=== PATIENT | female | born 1980 | race Caucasian/White ===

== ENCOUNTER 2023-09-21 10:39 | Day surgery (SDC) | payer OTHER ==
[2023-09-20 13:09] LABS: Anion Gap 8.6 mEq/L (5.0-15.0); Potassium 3.6 mEq/L (3.5-5.1)
[2023-09-21] MEDS: Ringers Lactate 1,000 ML IV ONE (11:05)
[2023-09-21] MEDS ORDERED: LIDOCAINE 1% MPF 5 ML VIAL ONE (13:32)
[2023-09-21] MEDS ORDERED: propofoL 200 MG/20 ML VIAL IV ONE ×2 (13:33→13:44)
[2023-09-21 15:47] VITALS: BP 121/76; TEMP 97.2; O2SAT 100
--- NOTE | 2023-09-21 17:48 | EKG ---
Test Date: 2023-09-20 Test Time: 12:46:45 [employer]: CHRIS MEASUREMENT RESULTS: Intervals: Rate: 71 NH: 154 QRSD: 84 QT: 354 QTc: 384 Ferdinand: P: 29 NH: 154 QRS: 59 T: 50 INTERPRETIVE STATEMENTS: Normal sinus rhythm Low voltage QRS Cannot rule out Anterior infarct, age undetermined Abnormal ECG No previous ECG available for comparison Electronically Signed On 09-21-23 17:46:33 CDT by Jae Barrera
== END 2023-09-21 14:30 | disposition home or self-care (01) ==
LOC: OR 10:39
PROVIDERS: ATTEND Surgery
PROC: 0DB78ZX Excision of Stomach, Pylorus, Via Natural or Artificial Opening Endoscopic, Diagnostic (ICD-10-PCS; 2023-09-21)
PROC: 0DB68ZX Excision of Stomach, Via Natural or Artificial Opening Endoscopic, Diagnostic (ICD-10-PCS; principal; 2023-09-21 12:30)
DX: K31.89 Other diseases of stomach and duodenum (principal); R10.13 Epigastric pain; R11.0 Nausea; K21.9 Gastro-esophageal reflux disease without esophagitis; K44.9 Diaphragmatic hernia without obstruction or gangrene; K29.60 Other gastritis without bleeding; K29.50 Unspecified chronic gastritis without bleeding; K31.7 Polyp of stomach and duodenum
CPT/HCPCS: 36415; 80048; 84703; 88302; 88304; 88305; 88312; 93005; J2001; J2704; J7120

== ENCOUNTER 2023-10-05 10:49 | Emergency (ER) | payer OTHER ==
--- OUTSIDE RECORDS SUMMARY | 2023-10-05 10:52 | XMS REPORT | Continuity of Care Document ---
Author Name Unknown Address [address] [facility] [place] [address] [facility] thconnect Address [address] [facility] [place] [address] Care Team Providers Care Outbound Supervisor Name Role Phone Cliff Busch MD Primary Care Physician + [phone] SALUD BLOUNT Attending Clinician Unavailayleen shipman Doctor Unassigned, [place] Attending Clinician U SOULEYMANE Galvan Attending Clinician Souleymane Julien Attending Clinician + ALDA ZAVALA Attending Clinician Unavailable ALDA ZAVALA Attending Clinician Unavailable Salud Blount MD Attending Clinician + [phone] KENYATTA CAMPBELL Attending Clinician Unavail able CLIFF BUSCH Attending Clinician Unavailable Cliff Busch MD Attending Clinician [phone] Dalton Peng PT Attending Clinician UnaTACO Machado Attending Clinician Unavailable Taco Jain MD Attending Clinician +[phone] KEY PEDRO Attending Clinician Unavailable Willis LUCASP-CKey Attending Clinician +[phone] Lab, Dago Cbc Attending Clinician Unavailable Care, Dago Urgent Attending Clinician Unavailable Niki White RN Attending Clinician Unavaila umberto Nurse, Dago Urgent Attending Clinician Unavailsylvia e Unknown, Attending Attending Clinician UnavailJann Marroquin MD Attending Clinician +[phone] UNKNOWN, ATTENDING Attending Clinician Unavailab Janet Dunn MD Attending Clinician ALDA ZAVALA Admitting Clinician Unavailable CLIFF BUSCH Admitting Clinician Unavailable Payers Payer Name Policy Type Policy Number Effective Date Expirati on Date Source [employer] OPEN ACCESS/OPEN ACCESS PLUS [id number] 2021 00:00:00 [employer] PREFERRED GENERIC [id number] 2023 00:00:00 TSHBP 90 [place] [id number] 2022 00:00:00 2022 00:00:00 LELAND II [id number] 2021 00:00:00 [facility] [id number] 2020 00:00:00 [facility] [id number] 2019 00:00:00 Problems Condition Name Condition Details Condition Category Status Onset Date Resolution Date Last Treatment Date Treating Clinician Comments Source Acute pain of left knee Acute pain of left knee Disease Active 11-04 00:00: 00 [facility] Decreased ROM of lower extremity Decreased ROM of lower extremity Disease Active 11-04 00:00: 00 [facility] Decreased strength of lower extremity Decreased strength of lower extremity Disease Active 11-04 00:00: 00 [facility] Essential hypertensi on Essential hypertensi on Disease Active 01-26 00:00: 00 [facility] Type 2 diabetes mellitus without complicati on, without long-term current use of insulin Type 2 diabetes mellitus without complicati on, without long-term current use of insulin Disease Active 01-26 00:00: 00 [facility] Hiatal hernia Hiatal hernia Disease Active 03-03 00:00: 00 [facility] Fatty liver Fatty liver Disease Active 03-03 00:00: 00 [facility] Gastroesop hageal reflux disease without esophagiti s Gastroesop hageal reflux disease without esophagiti s Disease Active 03-03 00:00: 00 [facility] Morbid obesity with BMI of 40.0-44.9, adult Morbid obesity with BMI of 40.0-44.9, adult Disease Active 03-03 00:00: 00 [facility] Allergies, Adverse Reactions, Alerts Allergy Name Allergy Type Status Severity Reaction(s) Onset Date Inactive Date Treating Clinician Comments Source NO KNOWN ALLERGIE S Drug Class Active [facility] Social History Social Habit Start Date Stop Date Quantity Comments Source History of tobacco use Cigarette Smoker [facility] Gender identity [facility] Sexual orientation U [facility] History of Social function 2023-08-17 00:00:00 2023-08-17 00:00:00 [facility] Alcohol intake 2023-08-09 00:00:00 2023-08-09 00:00:00 Current non-drinker of alcohol (finding) [facility] Exposure to SARS-CoV-2 (event) 2022-10-22 00:00:00 2022-11-01 10:23:00 Not sure [facility] Tobacco Comment 2022-11-01 00:00:00 2022-11-01 00:00:00 pt quit 5 years ago -1 pack every 3 days [facility] Tobacco use and exposure 2022-11-01 00:00:00 2022-11-01 00:00:00 Smokeless tobacco non-user [facility] Sex Assigned At 1980 00:00:00 1980 00:00:00 [facility] Smoking Status Start Date Stop Date Source Ex-smoker 2022-11-01 00:00:00 2022-11-01 00:00:00 [facility] Medications Ordered Medication Name Filled Medication Name Start Date Stop Date Current Medication? Ordering Clinician Indication Dosage Frequency Signature (SIG) Comments Components Source ketorolac (TORADOL) injection 30 mg 08-09 01:45: 00 08-09 01:18 :00 No 30mg 30 mg, Slow IV Push, ONCE, 1 dose, On Mon08/08/23 at 1945, Routine [facility] aspirin tablet 325 mg 08-08 23:30: 00 08-08 23:40 :00 No 325mg 325 mg, Oral, ONCE, 1 dose, On Mon08/08/23 at 1730, STAT [facility] sodium chloride (NS) injection 5 mL 08-08 23:21: 14 Yes 5mL 5 mL, Intravenou s, PRN, Starting on Mon08/08/23 at 1721, Until Discontinu ed, Routine, IV line flushing [facility] lisinopriL- hydrochloro thiazide 10-12.5 mg per tablet 08-08 00:00: 00 09-07 04:59 :00 Yes [id number] 1{tbl} Take 1 tablet by mouth in the morning for 30 days. [facility] Olopatadine (PATADAY) 0.2 % ophthalmic drops 11-01 11:05: [address] in each eye as needed. [facility] doxycycline hyclate 100 mg tablet 11-01 00:00: 00 Yes TAKE 1 TABLET BY MOUTH IN THE MORNING AND 1 TABLET IN THE EVENING. DO ALL THIS FOR 14 DAYS. [facility] fluconazole 150 mg tablet 10-18 00:00: 00 Yes TAKE 1 TABLET BY MOUTH ONCE NOW FOR 1 DOSE. [facility] doxycycline hyclate 100 mg tablet 10-18 00:00: 00 11-02 04:59 :00 No [id number] 9102 100mg Take 1 tablet by mouth in the morning and 1 tablet in the evening. Do all this for 14 days. [facility] neomycin-po lymyxin-dex amethasone (MAXITROL) 3.5 mg/g-10,000 unit/g-0.1 % ophthalmic ointment 10-18 00:00: 00 10-26 04:59 :00 No [id number] 9102 .5[in_u s] Place 0.5 Inches in right eye at bedtime for 7 days. [facility] famotidine (PEPCID) 20 mg tablet 10-14 00:00: 00 Yes [id number] 20mg Take 1 tablet by mouth 2 (two) times daily. [facility] metformin ER 500 mg 24 hr tablet 10-14 00:00: 00 Yes [id number] 500mg Take 1 tablet by mouth daily with breakfast. [facility] lisinopriL- hydrochloro thiazide 10-12.5 mg per tablet 10-14 00:00: 00 Yes [id number] 1{tbl} Take 1 tablet by mouth daily. [facility] gabapentin 300 mg capsule 10-04 00:00: 00 Yes [id number] 300mg Take 1 capsule by mouth 3 (three) times daily. [facility] meloxicam (MOBIC) 15 mg tablet 10-04 00:00: 00 Yes [id number] 15mg Take 1 tablet by mouth once daily as needed for Pain. [facility] Vital Signs Vital Name Observation Time Observation Value Comments S jaxjames Systolic blood pressure 2023-08-17 19:51:00 121 mm[Hg] [facility] Diastolic blood pressure 2023-08-17 19:51:00 83 mm[Hg] [facility] Heart rate 2023-08-17 19:51:00 89 /min [facility] Body temperature 2023-08-17 19:51:00 36.72 Lou [facility] Body height 2023-08-17 19:51:00 157.5 cm [facility] Body weight 2023-08-17 19:51:00 102.513 kg [facility] BMI 2023-08-17 19:51:00 41.34 kg/m2 [facility] Systolic blood pressure 2023-08-09 02:00:00 127 mm[Hg] [facility] Diastolic blood pressure 2023-08-09 02:00:00 86 mm[Hg] [facility] Heart rate 2023-08-09 02:00:00 81 /min [facility] Respiratory rate 2023-08-09 02:00:00 12 /min [facility] Oxygen saturation in Arterial blood by Pulse oximetry 2023-08-09 02:00:00 95 /min [facility] Body height 2023-08-08 23:21:00 158.8 cm [facility] Body weight 2023-08-08 23:21:00 103.42 kg [facility] BMI 2023-08-08 23:21:00 41.04 kg/m2 [facility] Body temperature 2023-08-08 23:19:00 37 Lou [facility] Body weight 2022-12-06 15:49:00 101.606 kg [facility] BMI 2022-12-06 15:49:00 40.32 kg/m2 [facility] Body weight 2022-11-01 16:00:00 101.606 kg [facility] BMI 2022-11-01 16:00:00 40.32 kg/m2 [facility] Body weight 2022-10-18 14:33:00 101.606 kg [facility] BMI 2022-10-18 14:33:00 40.32 kg/m2 [facility] Procedures Procedure Date / Time Performed Performing Clinician Source EXTERNAL PROVIDER RECORDS 2023-08-31 05:01:00 Doctor Unassigned, [place] [facility] TROPONIN I 2023-08-09 01:18:00 Alda Zavala [facility] XR CHEST 2 VW 2023-08-08 23:48:00 Alda Zavala [facility] POCT TEST 2023-08-08 23:42:00 Alda Zavala [facility] LIPASE 2023-08-08 23:33:00 Alda Zavala [facility] TROPONIN I 2023-08-08 23:33:00 [facility] THYROID STIMULATING HORMONE 2023-08-08 23:33:00 Alda Zavala [facility] COMP. METABOLIC PANEL ([id number]) 2023-08-08 23:33:00 Alda Zavala [facility] CBC WITH DIFF 2023-08-08 23:33:00 Alda Zavala [facility] CONSENT/REFUSAL FOR DIAGNOSIS AND TREATMENT 2023-08-08 23:14:03 Doctor Unassigned, [place] [facility] ASSIGNMENT OF BENEFITS 2022-11-01 15:24:41 Docto r Unassigned, [place] [facility] AUTHORIZATION TO RELEASE PHI TO [facility] 2022-10-18 05:01:00 Doctor Unassigned, [place] [facility] Encounters Start Date/Time End Date/Time Encounter Type Admission Type Attending [facility] Care Facility Care Department Encounter ID Source 2022-08-24 09:24:03 Outpatient [facility] [id number] [facility] 2021-12-21 13:44:56 Outpatient [facility] [id number] [facility] 2023-09-04 09:00:00 2023-09-04 09:00:00 Outpatient R SALUD BLOUNT [facility] [id number] [facility] 2023-08-31 00:00:00 2023-08-31 00:00:00 Orders Only Doctor Unassigned, [place] [facility] 1.840.114 350.1.13.10 4.2.7.2.686 [id number] [facility] 2023-08-17 14:00:00 2023-08-17 15:04:27 [id number] 2023-08-17 14:00:00 2023-08-17 15:04:27 Office Visit Fei hunt [facility] 1.840.114 350.1.13.10 4.2.7.2.686 [id number] [facility] 2023-08-16 00:00:00 2023-08-16 00:00:00 Patient Secure Msg Doctor Unassigned, [place] [facility] 1.840.114 350.1.13.10 4.2.7.2.686 [id number] [facility] 2023-08-08 17:21:00 2023-08-08 21:26:00 Emergency X LUCAS, ALDA WILLAMS [facility] ERT [id number] [facility] 2023-08-08 17:21:00 2023-08-08 21:26:00 Emergency LucasAlda [facility] ([facility] 1.2.840.114 350.1.13.10 4.2.7.2.686 [id number] [facility] 2022-12-06 10:45:00 2022-12-06 11:42:29 Outpatient R SALUD BLOUNT [facility] [id number] [facility] 2022-12-06 10:45:00 2022-12-06 11:42:29 Office Visit Salud Blount [facility] 1.2840.114 350.1.13.10 4.2.7.2.686 [id number] [facility] 2022-11-11 00:00:00 2022-11-11 00:00:00 Telephone Salud Blount [facility] 1.0.114 350.1.13.10 4.2.7.2.686 [id number] [facility] 2022-11-01 10:30:00 2022-11-01 11:52:13 Outpatient R SALUD BLOUNT [facility] [id number] [facility] 2022-11-01 10:30:00 2022-11-01 11:52:13 Office Visit Salud Blount [facility] 1.2840.114 350.1.13.10 4.2.7.2.686 [id number] [facility] 2022-11-01 00:00:00 2022-11-01 00:00:00 Orders Only Doctor Unassigned, [place] [facility] 1.2840.114 350.1.13.10 4.2.7.2.686 [id number] [facility] 2022-10-18 09:30:00 2022-10-18 10:33:58 Outpatient SALUD JUDD [facility] [id number] [facility] 2022-10-18 09:30:00 2022-10-18 10:33:58 Office Visit Salud Blount [facility] 1.114 350.1.13.10 4.2.7.2.686 [id number] [facility] 2022-10-18 00:00:00 2022-10-18 00:00:00 Orders Only Doctor Unassigned, [place] [facility] 1.84.114 350.1.13.10 4.2.7.2.686 [id number] [facility] 2022-03-09 13:00:00 2022-03-09 13:00:00 Outpatient CLIFF EUGENE [facility] [id number] [facility] 2022-03-03 08:40:00 2022-03-03 08:40:00 Outpatient CLIFF EUGENE [facility] [id number] [facility] 2022-03-03 08:40:00 2022-03-03 08:40:00 Outpatient CLIFF EUGENE [facility] [id number] [facility] 2022-03-03 08:40:00 2022-03-03 08:40:00 Outpatient CLIFF EUGENE [facility] [id number] [facility] 2021-12-28 08:08:54 2021-12-28 23:59:00 Outpatient CLIFF EUGENE [facility] [id number] [facility] 2021-12-28 08:08:54 2021-12-28 23:59:00 Hospital Cliff Polk [facility] 1.840.114 350.1.13.10 4.2.7.2.686 [id number] [facility] 2021-11-18 00:00:00 2021-11-18 00:00:00 Case Management Dalton Peng [facility] ([facility] 1.20.114 350.1.13.10 4.2.7.2.686 [id number] [facility] 2021-11-15 09:40:00 2021-11-15 09:40:00 Outpatient TACO ALCOCER [facility] [id number] [facility] 2021-11-10 08:15:00 2021-11-10 08:15:00 Outpatient TACO ALCOCER [facility] [id number] [facility] 2021-11-04 13:00:00 2021-11-04 14:04:05 Outpatient TACO ALCOCER [facility] [id number] [facility] 2021-11-04 13:00:00 2021-11-04 14:04:05 Ancillary Visit Dalton Peng Brian A [facility] ([facility] 1.284.114 350.1.13.10 4.2.7.2.686 [id number] [facility] 2021-11-04 00:00:00 2021-11-04 00:00:00 Patient Secure Msg Cliff Busch [facility] [id number] 350.1.13.10 4.2.7.2.686 [id number] [facility] 2021-10-19 00:00:00 2021-10-19 00:00:00 Outpatient TACO ALCOCER [facility] [id number] [facility] 2021-10-14 09:20:00 2021-10-14 09:40:00 Office Visit Cliff Busch [facility] 1.2840.114 350.1.13.10 4.2.7.2.686 [id number] [facility] 2021-10-14 09:20:00 2021-10-14 09:20:00 Outpatient CLIFF EUGENE [facility] [id number] [facility] 2021-10-14 09:20:00 2021-10-14 09:20:00 Outpatient CLIFF EUGENE [facility] [id number] [facility] 2021-10-14 09:20:00 2021-10-14 09:20:00 Outpatient CLIFF EUGENE [facility] [id number] [facility] 2021-10-11 00:00:00 2021-10-11 00:00:00 Telephone Taco Jain [facility] [place] [facility] .840.114 350.1.13.10 4.2.7.2.686 [id number] [facility] 2021-10-07 00:00:00 2021-10-07 00:00:00 Outpatient KEY PENA [facility] [id number] [facility] 2021-10-04 14:26:06 2021-10-04 23:59:00 Hospital Encounter Taco Jain [facility] [place] [facility] .840.114 350.1.13.10 4.2.7.2.686 [id number] [facility] 2021-10-04 13:50:00 2021-10-04 15:16:13 Outpatient R TACO JAIN [facility] [id number] [facility] 2021-10-04 13:50:00 2021-10-04 15:16:13 Office Visit Taco Jain [facility] [place] [facility] .840.114 350.1.13.10 4.2.7.2.686 [id number] [facility] 2021-10-04 14:26:06 2021-10-04 14:26:06 Outpatient R TACO JAIN [facility] [id number] [facility] 2021-10-04 14:25:59 2021-10-04 14:25:59 Outpatient R TACO JAIN [facility] [id number] [facility] 2021-10-04 14:25:59 2021-10-04 14:25:59 Hospital Encounter Taco Jain [facility] 1.2840.114 350.1.13.10 4.2.7.2.686 [id number] [facility] 2021-09-25 00:00:00 2021-09-25 00:00:00 Patient Secure Msg Doctor Unassigned, [place] [facility] 1.2840.114 350.1.13.10 4.2.7.2.686 [id number] [facility] 2021-09-14 09:00:00 2021-09-14 09:30:00 Office Visit Willis [facility]IMARY [facility] SPECIALTY CARE 1.2.840.114 350.1.13.10 4.2.7.2.686 [id number] [facility] 2021-09-14 09:00:00 2021-09-14 09:30:00 Office Visit [facility]TY [facility] 1.2840.114 350.1.13.10 4.2.7.2.686 [id number] [facility] 2021-09-14 09:00:00 2021-09-14 09:00:00 Outpatient R KEY PEDRO [facility] [id number] [facility] 2021-09-14 00:00:00 2021-09-14 00:00:00 Orders Only Doctor Unassigned, [place] [facility] 1.2840.114 350.1.13.10 4.2.7.2.686 [id number] [facility] 2021-09-14 00:00:00 2021-09-14 00:00:00 Rosmery Cliff Busch [facility] 1.2.840.114 350.1.13.10 4.2.7.2.686 [id number] [facility] 2021-08-31 09:30:00 2021-08-31 23:59:00 Outpatient R WILLIS [facility] [id number] [facility] 2021-08-31 09:30:00 2021-08-31 23:59:00 Hospital Encounter [facility]IMARY [facility] SPECIALTY CARE 1.2.840.114 350.1.13.10 4.2.7.2.686 [id number] [facility] 2021-08-31 09:45:00 2021-08-31 10:00:00 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, Cliff Villanueva [facility] 1.2.840.114 350.1.13.10 4.2.7.2.686 [id number] [facility] 2021-08-31 09:00:00 2021-08-31 09:35:13 Outpatient R WILLIS [facility] [id number] [facility] 2021-08-31 09:00:00 2021-08-31 09:35:13 Office Visit Pedro [facility]IMARY [facility] SPECIALTY CARE 1.2.840.114 350.1.13.10 4.2.7.2.686 [id number] [facility] 2021-08-31 09:00:00 2021-08-31 09:35:13 Outpatient R WILLIS [facility] [id number] [facility] 2021-08-31 09:00:00 2021-08-31 09:35:13 Office Visit Pedro, [facility]IMARY [facility] SPECIALTY CARE 1.2.840.114 350.1.13.10 4.2.7.2.686 [id number] [facility] 2021-08-31 00:00:00 2021-08-31 00:00:00 Telephone Willis [facility] PRIMARY SPECIALTY CARE 1.2.840.114 350.1.13.10 4.2.7.2.686 [id number] [facility] 2021-08-31 00:00:00 2021-08-31 00:00:00 Telephone Willis [facility] PRIMARY SPECIALTY CARE 1.2.840.114 350.1.13.10 4.2.7.2.686 [id number] [facility] 2021-07-29 08:40:00 2021-07-29 08:40:00 Outpatient CLIFF EUGENE [facility] [id number] [facility] 2021-01-26 09:27:31 2021-01-26 09:42:31 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, Dago Cliff Tucker [facility] Primary Specialty Care 1.2.840.114 350.1.13.10 4.2.7.2.686 [id number] [facility] 2021-01-26 08:47:44 2021-01-26 09:22:53 Office Visit Cliff Busch [facility] Primary & Specialty Care 1.2.840.114 350.1.13.10 4.2.7.2.686 [id number] [facility] 2021-01-26 09:00:00 2021-01-26 09:00:00 Outpatient CLIFF EUGENE [facility] [id number] [facility] 2021-01-14 10:40:00 2021-01-14 10:40:00 Outpatient CLIFF EUGENE [facility] [id number] [facility] 2021-01-04 10:20:00 2021-01-04 10:20:00 Outpatient R CLIFF BUSCH [facility] [id number] [facility] 2020-11-12 00:00:00 2020-11-12 00:00:00 Refill Cliff Busch [facility] Primary & Specialty Care 1.2.840.114 350.1.13.10 4.2.7.2.686 [id number] [facility] 2020-07-18 00:00:00 2020-07-18 00:00:00 Letter (Out) Care, Dago Urgent [facility] Primary Specialty Care 1.2.840.114 350.1.13.10 4.2.7.2.686 [id number] [facility] 2020-07-15 00:00:00 2020-07-15 00:00:00 Telephone Niki White [facility] 1.2.840.114 350.1.13.10 4.2.7.2.686 [id number] [facility] 2020-07-14 13:07:18 2020-07-14 13:25:03 Laboratory Only Nurse, [place] Urgent Unknown, Attending Jann Lopez [facility] Primary Specialty Care 1.2.840.114 350.1.13.10 4.2.7.2.686 [id number] [facility] 2020-07-14 13:15:00 2020-07-14 13:15:00 Outpatient R UNKNOWN, ATTENDING [facility] [id number] [facility] 2020-07-06 11:47:30 2020-07-06 12:02:30 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, Dago Cbc Cliff Busch [facility] Primary & Specialty Care 1.2.840.114 350.1.13.10 4.2.7.2.686 [id number] [facility] 2020-07-06 11:01:00 2020-07-06 11:21:00 Office Visit Cliff Busch [facility] Primary & Specialty Care 1.2.114 350.1.13.10 4.2.7.2.686 [id number] [facility] 2020-07-06 11:20:00 2020-07-06 11:20:00 Outpatient R CLIFF BUSCH [facility] [id number] [facility] 2020-05-05 15:13:20 2020-05-05 16:27:05 Office Visit Cliff Busch [facility] 1.2114 350.1.13.10 4.2.7.2.686 [id number] [facility] 2020-05-05 15:20:00 2020-05-05 15:20:00 Outpatient CLIFF EUGENE [facility] [id number] [facility] 2020-03-23 10:47:10 2020-03-23 23:59:00 Hospital Encounter Cliff Busch [facility] 1..114 350.1.13.10 4.2.7.2.686 [id number] [facility] 2020-03-23 00:00:00 2020-03-23 00:00:00 Outpatient R CLIFF BUSCH [facility] [id number] [facility] 2020-03-23 00:00:00 2020-03-23 00:00:00 Orders Only Doctor Unassigned, [facility] 1..114 350.1.13.10 4.2.7.2.686 [id number] [facility] 2020-03-03 12:05:35 2020-03-03 12:20:35 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, Cliff Villanueva [facility] 1..114 350.1.13.10 4.2.7.2.686 [id number] [facility] 2020-03-03 11:20:06 2020-03-03 11:59:08 Office Visit Cliff Busch [facility] 1.2.840.114 350.1.13.10 4.2.7.2.686 [id number] [facility] 2020-03-03 11:20:00 2020-03-03 11:20:00 Outpatient R CLIFF BUSCH [facility] [id number] [facility] 2020-03-03 00:00:00 2020-03-03 00:00:00 Orders Only Doctor Unassigned, [facility] 1.2.840.114 350.1.13.10 4.2.7.2.686 [id number] [facility] 2020-02-18 00:00:00 2020-02-18 00:00:00 Refill Cliff Busch [facility] 1.2.840.114 350.1.13.10 4.2.7.2.686 [id number] [facility] 2020-01-13 00:00:00 2020-01-13 00:00:00 Refill Cliff Busch [facility] 1.2.840.114 350.1.13.10 4.2.7.2.686 [id number] [facility] 2019-07-30 00:00:00 2019-07-30 00:00:00 Orders Only Doctor Unassigned, [facility] 1.2.840.114 350.1.13.10 4.2.7.2.686 [id number] [facility] 2019-02-27 08:59:48 2019-02-27 23:59:00 Hospital Encounter Janet Shelby [facility] 1.2.840.114 350.1.13.10 4.2.7.2.686 [id number] [facility] 2019-02-14 00:00:00 2019-02-14 00:00:00 Telephone Janet Shelby [facility] in [facility] od 1.2.840.114 350.1.13.10 4.2.7.2.686 [id number] [facility] 2019-02-14 00:00:00 2019-02-14 00:00:00 Telephone Afsaneh [facility] [employer] in [facility] 1.2.840.114 350.1.13.10 4.2.7.2.686 [id number] [facility] 2019-02-13 09:23:13 2019-02-13 23:59:00 Hospital Encounter Janet Shelby [facility] 1.2.840.114 350.1.13.10 4.2.7.2.686 [id number] [facility] Results Test Description Test Time Test Comments Results Result Co mments Source [facility]ulating Lmbxiza0759-08-72 01:30:38 * Test Item Value Reference Range Interpretation Comme nts TSH (test code = 5773378388) 2.00 0.45-4.70 Biotin has been reported to cause a negative bias, interpret results relative to patient's use of biotin. Lab Interpretation (test code = 28520-4) Normal [facility] [id number] 00:20:16EXAM: XR CHEST 2 VW COMPARISON: Chest radiograph on 06/17/2018. HISTORY: chest pain/palpitations FINDINGS: Lungs: The lungs are well expanded and clear. No focal opacity. No pleuralabnormality. Heart/Mediastinum: The cardiomediastinal silhouette is unremarkable. Bones and soft tissues: No osseous lesions visualized.[facility] CenterTROPON[facility] [id number] 00:05:51* Test Item Value Reference Range Interpretation Comme nts TROPONIN I (test code = 8057987113) 0.004 ng/mL <=0.034 ISIDRA (test code = ISIDRA) Reference (Normal) Range (defined by the 99th percentile reference limit): <= 0.034 ng/mL Note: Cardiac troponin begins to rise 3-4 hours after the onset of ischemia. Repeat in 4-6 hours if the sample was drawn within 3-4 hours of the onset of the symptom and found normal. Diagnosis of myocardial injury is made with acute changes in cTn concentrations with at least one serial sample above the 99th percentile upper reference limit (URL), taken together with the patient's clinical presentation. Biotin has been reported to cause a negative bias, interpret results relative to patient's use of biotin. Lab Interpretation (test code = 61416-7) Normal [facility]. METABOLIC PANEL (89836)2023-08-08 23:55:27* Test Item Value Reference Range Interpretation Comme nts NA (test code = 8464771094) 137 mmol/L 135-145 K (test code = 3609489298) 4.1 mmol/L 3.5-5.0 CL (test code = 4666684855) 102 mmol/L 98-108 CO2 TOTAL (test code = 7102555630) 26 mmol/L 23-31 AGAP (test code = 7001767670) 9 2-16 BUN (test code = 9328811478) 15 mg/dL 7-23 GLUCOSE (test code = 7411952440) 103 mg/dL 70-110 CREATININE (test code = 2160-0) 0.70 mg/dL 0.50-1.04 TOTAL BILI (test code = 6069664126) 0.6 mg/dL 0.1-1.1 CALCIUM (test code = 3023124643) 9.2 mg/dL 8.6-10.6 T PROTEIN (test code = 1557267262) 7.6 g/dL 6.3-8.2 ALBUMIN (test code = 6547722988) 4.4 g/dL 3.5-5.0 ALK PHOS (test code = 4282681083) 101 U/L 34-122 ALTv (test code = 1742-6) 21 U/L 5-35 AST(SGOT) (test code = 7406262477) 28 U/L 13-40 eGFR (test code = 39542-9) 111.6 mL/min/1.73m2 CKD-EPI eGFR (20 21). Assuming creatinine has been stable day-to-day for at least three months, the eGFR indicates Category G1 (>= 90 mL/min/1.73 m2) [facility] CenterLIP[facility], [id number] 23:55:27* Test Item Value Reference Range Interpretation Comme nts LIPASE (test code = 1893660794) 36 U/L 0-220 Lab Interpretation (test cod e = 24840-5) Normal [facility] Center[facility] WITH [id number] 23:42:07* Test Item Value Reference Range Interpretation Comme nts WBC (test code = 6690-2) 8.77 4.30-11.10 RBC (test code = 789-8) 4.68 3.93-5.25 HGB (test code = 718-7) 11.9 g/dL 11.6-15.0 HCT (test code = 4544-3) 36.1 % 35.7-45.2 MCV (test code = 787-2) 77.1 fL 80.6-95.5 L MCH (test code = 785-6) 25.4 pg 25.9-32.8 L MCHC (test code = 786-4) 33.0 g/dL 31.6-35.1 RDW-SD (test code = 43452-8) 39.9 fL 39.0-49.9 RDW-CV (test code = 788-0) 14.4 % 12.0-15.5 PLT (test code = 777-3) 337 166-358 MPV (test code = 62767-3) 9.6 fL 9.5-12.9 NRBC/100 WBC (test code = 3599168570) 0.0 0.0-10.0 NRBC x10^3 (test code = 7025280071) See_Comment [Automated LinkClouda ge] The system which generated this result transmitted reference range: 10*3/?L. The reference range was not used to interpret this result as normal/abnormal. GRAN MAT (NEUT) % (test code = 770-8) 61.6 % IMM GRAN % (test code = 9266787304) 0.20 % LYMPH % (test code = 736-9) 29.9 % MONO % (test code = 5905-5) 7.0 % EOS % (test code = 713-8) 0.7 % BASO % (test code = 706-2) 0.6 % GRAN MAT x10^3(ANC) (test code = 2646703415) 5.41 10*3/uL 1.88-7.09 IMM GRAN x10^3 (test code = 1840148451) 0.00-0.06 LYMPH x10^3 (test code = 731-0) 2.62 10*3/uL 1.32-3.29 MONO x10^3 (test code = 742-7) 0.61 10*3/uL 0.33-0.92 EOS x10^3 (test code = 711-2) 0.06 10*3/uL 0.03-0.39 BASO x10^3 (test code = 704-7) 0.05 10*3/uL 0.01-0.07 Lab Interpretation (test code = 66544-1) Abnormal [facility] CenterPO[facility] [id number] 23:42:00* Test Item Value Reference Range Interpretation Comme nts POCT PREG (test code = 1605) Negative On board controls acceptable with C Line (test code = 3574) Yes Lab Interpretation (test cod e = 51163-7) Normal [facility] Notes Date/Time Note Provider Source 2023-08-08 21:26:23 fKeSu89UP1d/IkcmnnXl UsG3GkVwJ7nNHl YpRv0F6b+FIOG9NbXDcSc8/R7a94798125 -02-27T21:26:23 Pt is alert and follows commands. Written instructions were printed and reviewed with the patient. Changed prescriptions were also reviewed. Instructed patient to return if symptoms became worse. Pt verbalized understanding and discharge sheet was signed. [facility] Access Center phone number highlighted/explained for f/u and/or to obtain PCP appointment.Ruddy Ayala, ERICN/[facility] [address]-3Hjarygnsn department YfnaLB3691-62-32L09:26:41[facility] NoteTXT1.2.840.791219.1.13.104.2.7 .2.509802|[id number] for patient faiu33002-3JmoxHXDOQDAFEJTRywwhuyr d C-CDA narrative [id number] A Burek RN[id number] 44PTPLJFEWJSHZBJWPYJRYVW8404-25-85 T21:26:411.2.840.242055.1.72.3.15| 1.2.840.341025.1.13.104.2.7.2.7278 [id number] Ruddy Ayala RN [facility] 2023-08-08 19:19:54 or+fHWKgXN33QpNPNBnF 6U4QTlQbzS0QsS wE1VYaNwGmywsJCxSldde151nNP1XN9023 -02-27T19:19:54 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 On/off chest palpitations since Jul 03. With some on/off SOB and nausea. No complaints at this time. [address]-7Evdpcxmjk department CsugAN0827-56-47R00:20:22[facility] department NoteTXT1.2.840.580227.1.13.104.2.7 .2.239424|[id number] for patient kmua56971-9JqhyTBCSSQTXOLOXtzkitwm d C-CDA narrative text[id number] 03FCGJULTIRYQHDUGQJRCSFQ5763-30-44 T19:20:221.2.840.500995.1.72.3.15| 1.2.840.998432.1.13.104.2.7.2.7278 [id number] [facility] 2023-08-08 17:19:06 Lm+zmZDB92XZEV1suPWL Q8ToAweEbYkLjh YkuvpdAap95AQjp8Dkd//ZZ1bkegfV2244 -02-27T17:19:06 Adilene Lord is a 43 year old female presenting today forChief ComplaintPatient presents withChest PainPalpitations- Patient symptoms have been going on "a while" but has been getting more frequent since June and more consistent since yesterday.Was seen by Cardiology on Jul 27. States she did a halter monitor done along with an echo but has not received the results yet.NAD noted.EKG done in triage.Past Medical History:Diagnosis DateGERD (gastroesophageal [place] [address]-8Kovjnqubk department Triage yyidXV4906-18-61X22:20:59Emergency department Triage noteTXT1.2.840.179304.1.13.104.2.7 .2.468228|[id number] for patient fshq55481-1Cqvckdavy department NoteLNNARRATIVEFormatted C-CDA narrative [id number] Rubi RNUT[address] XsulEcmi[id number] 13FMKTNLOUSKNXFZAZRVPCRR0510-54-76 T17:20:591.2.840.344457.1.72.3.15| 1.2.840.829632.1.13.104.2.7.2.7278 [id number] Handy Rubi RN [facility]
[2023-10-05 11:33] LABS: Absolute Basophils 0.1 K/uL (0-0.5); Absolute Eosinophils 0.1 K/uL (0-0.5); Absolute Lymphocytes (CBC) 2.9 K/uL (0.7-4.9); Absolute Monocytes 0.6 K/uL (0.1-1.3); Absolute Neutrophil 5.5 K/uL (1.8-8.0); Basophils % 0.6 % (0-1.3); Hematocrit 33.7 % (36.0-45.0); Hemoglobin 10.8 g/dL (12.0-15.0); Lymphocytes % 31.5 % (15.3-44.8); MCH 25.1 pg (27.0-35.0); MCV 78.3 fL (80-100); MPV 7.9 fL (7.6-11.3); Monocytes % 6.4 % (3.3-12.3); Neutrophils % 60.5 % (41.7-73.7); Platelets 386 thou/uL (152-406); RBC Red Blood Cell Count 4.31 M/uL (3.86-4.86); Red Cell Distribution Width 15.4 % (12.1-15.2)
[2023-10-05 11:43] LABS: Specific Gravity > 1.030 (1.005-1.030)
[2023-10-05 11:47] LABS: Specific Gravity > 1.030 (1.005-1.030); Urine Bacteria <20 /HPF (<20); Urine Bilirubin NEGATIVE (Negative); Urine Blood Trace (Negative); Urine Clarity Extremely Turbid (Clear); Urine Color Yellow (Yellow); Urine Culture Reflex Order NOT NEEDED; Urine Glucose TRACE (Negative); Urine Ketones TRACE (Negative); Urine Microscopic Reflex YN ORDER UMIC; Urine Mucus 4+ /HPF (None Seen); Urine Nitrite NEGATIVE (Negative); Urine Protein 1+ (Negative); Urine Urobilinogen Normal (Normal); Urine pH 5.5 (5.0-7.0)
[2023-10-05 11:55] LABS: Albumin 3.6 g/dL (3.4-5.0); Bilirubin Total 0.5 mg/dL (0.2-1.0); Globulin 3.7 g/dL (2.3-3.5); Protein, Total 7.3 g/dL (6.4-8.2)
--- NOTE | 2023-10-05 12:14 | RAD REPORT ---
EXAM DESCRIPTION: CTAbdomen Pelvis W Contrast - 10/05/2023 11:55 am CLINICAL HISTORY: Abdominal pain. ABD PAIN COMPARISON: No comparisons TECHNIQUE: Biphasic CT imaging of the abdomen and pelvis was performed with 100 ml non-ionic IV cont rast. All CT scans are performed using dose optimization technique as appropriate and may include automated exposure control or mA/KV adjustment according to patient size. FINDINGS: The lung bases are clear. The liver is diffusely fatty. The spleen, pancreas, right adrenal gland and kidneys are within normal limits. 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 No bowel obstruction, free air, free fluid or abscess. Mild sigmoid diverticulosis coli without diver ticulitis. The appendix is normal. No evidence of significant lymphadenopathy. No suspicious bony findings. IMPRESSION: No acute intra-abdominal or pelvic finding.
--- NOTE | 2023-10-05 12:41 | ER ---
Nurse's Notes [facility] Name: Adilene Swift Age: 43 yrs Sex: Female : 1980 Arrival Date: 10/05/2023 Time: 10:49 Bed 10 Private MD: Diagnosis: Vomiting, abdominal pain, dehydration Presentation: 10/04 10:56 Chief complaint: Patient states: having bad pains in mid right back , I've been under iw the care of a GI doctor , had US 3 weeks ago, had scope two weeks ago, pain was getting better, was referred to a specialist for her liver , on Monday the pain came back and now is constant and unbearable since last night. Coronavirus screen: At this time, the client does not indicate any symptoms associated with coronavirus-19. Ebola Screen: Patient negative for fever greater than or equal to 101.5 degrees Fahrenheit, and additional compatible Ebola Virus Disease symptoms Patient denies exposure to infectious person. Patient denies travel to an Ebola-affected area in the 21 days before illness onset. No symptoms or risks identified at this time. Initial Sepsis Screen: Does the patient meet any 2 criteria? No. Patient's initial sepsis screen is negative. Does the patient have a suspected source of infection? No. Patient's initial sepsis screen is negative. Risk Assessment: Do you want to hurt yourself or someone else? Patient reports no desire to harm self or others. 10:56 Method Of Arrival: Ambulatory iw 10:56 Acuity: HALIE 3 iw 12:55 Onset of symptoms was June 2023. 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 - Infectious Disease History:: Denies. - Social history:: Smoking status: Patient denies any tobacco usage or history of. Screenin:05 [facility] ED Fall Risk Assessment (Adult) History of falling in the last 3 months, ll1 including since admission No falls in past 3 months (0 pts) Confusion or Disorientation No (0 pts) Intoxicated or Sedated No (0 pts) Impaired Gait No (0 pts) Mobility Assist Device Used No (0 pt) Altered Elimination No (0 pt) Score/Fall Risk Level 0 - 2 = Low Risk Maintained a safe environment, Hourly rounding (assess needs \T\ fall precautionary measures) done. Abuse screen: Denies threats or abuse. Nutritional screening: No deficits noted. Tuberculosis screening: No symptoms or risk factors identified. Assessment: 12:05 General: Appears uncomfortable, Behavior is calm, cooperative, appropriate for age. ll1 Pain: Complains of pain in back Quality of pain is described as aching. Neuro: No deficits noted. Musculoskeletal: Reports pain in back. 12:50 General: Appears in no apparent distress. comfortable, Behavior is calm, cooperative, nj1 appropriate for age. Pain: Complains of pain in back Pain radiates to abdomen Pain currently is 5 out of 10 on a pain scale. Neuro: Level of Consciousness is awake, alert, obeys commands, Oriented to person, place, time, situation. Cardiovascular: Patient's skin is warm and dry. Respiratory: Airway is patent Respiratory effort is even, unlabored. GI: Reports nausea. 12:55 Reassessment: Discharge on hold, IVF infusing. nj1 Vital Signs: 10:56 BP 122 / 82; Pulse 87; Resp 16; Temp 98.7; Pulse Ox 100% on R/A; Weight 99.79 kg; iw Height 5 ft. 3 in. ; Pain 7/10; 12:50 BP 143 / 83; Pulse 93; Resp 16; Pulse Ox 98% on R/A; Pain 5/10; nj1 10:56 Body Mass Index 38.97 (99.79 kg, 160.02 cm) iw 10:56 Pain Scale: Adult iw 12:50 Pain Scale: Adult nj1 ED Course: 10:51 Patient arrived in ED. rg4 10:52 Sharee Solomon MD is Attending Physician. sp3 10:58 Triage completed. iw 10:59 Arm band placed on. iw 11:15 Missed attempt(s): 22 gauge in left antecubital area. Bleeding controlled, band aid bc6 applied, catheter tip intact. 11:29 CBC with Diff Sent. bc6 11:29 CMP Sent. bc6 11:29 Lipase Sent. bc6 11:29 Initial lab(s) drawn, by me, sent to lab. Inserted saline lock: 22 gauge in right bc6 antecubital area, using aseptic technique. Blood collected. IV is intact, Flushed right antecubital with 5 ml normal saline. 11:34 Urine collected: clean catch specimen, abisai colored. bc6 11:57 CT Abd/Pelvis - IV Contrast Only In Process Unspecified. EDMS 12:05 Patient placed in an exam room, on a stretcher. ll1 12:05 Patient has correct armband on for positive identification. Bed in low position. Call ll1 light in reach. Cardiac monitoring not applicable on this patient. 12:22 Jennifer Sevilla, RN is Primary Nurse. nj1 12:55 Provided Education on: call light, fall precautions. nj1 12:56 No provider procedures requiring assistance completed. nj1 Administered Medications: 12:50 Drug: NS 0.9% IV 1000 ml IV at 1 bolus Per protocol; 1000 mL bolus Route: IV; Rate: 1 nj1 bolus; Site: right antecubital; 12:50 Drug: Ondansetron IVP 4 mg IVP once; over 2 minutes Route: IVP; Site: right antecubital;nj1 Outcome: 12:41 Discharge ordered by . annetta 14:10 Patient left the ED. 6 Signatures: Dispatcher [employer] EDUT Dayna Finley, Angelica Gill RN rg4 Juan Rockwell RN RN ll1 Sharee Solomon MD MD sp3 Kassandra Owen bc6 Jennifer Sevilla, RN RN nj1
--- NOTE | 2023-10-05 12:41 | EDPHYS ---
Physician Documentation [facility] Name: Adilene Swift Age: 43 yrs Sex: Female : 1980 Arrival Date: 10/05/2023 Time: 10:49 Bed 10 Private MD: ED Physician Sharee Solomon HPI: 10/04 11:13 This 43 yrs old Female presents to ER via Ambulatory with complaints of RUQ and right sp3 flank pain. 11:13 43-year-old female with history of hypertension and recent right upper quadrant sp3 abdominal pain currently being worked up by PCP and Dr. Rubin with ultrasound demonstrating possible nodules in the liver and normal EGD performed by Dr. Rubin presents to the ED with continued right upper quadrant abdominal pain. Her current state of recurrent workup is referral to GI for further workup. She has not yet had CT imaging. She currently states that her pain is getting worse and is sharp in nature episodic. 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 - Infectious Disease History:: Denies. - Social history:: Smoking status: Patient denies any tobacco usage or history of. ROS: 11:14 Constitutional: Negative for fever, chills, and weight loss, Eyes: Negative for injury, sp3 pain, redness, and discharge, ENT: Negative for injury, pain, and discharge, Neck: Negative for injury, pain, and swelling, Cardiovascular: Negative for chest pain, palpitations, and edema, Respiratory: Negative for shortness of breath, cough, wheezing, and pleuritic chest pain, Back: Negative for injury and pain, MS/Extremity: Negative for injury and deformity, Skin: Negative for injury, rash, and discoloration, Neuro: Negative for headache, weakness, numbness, tingling, and seizure, Psych: Negative for depression, anxiety, suicide ideation, homicidal ideation, and hallucinations, Allergy/Immunology: Negative for hives, rash, and allergies, Endocrine: Negative for neck swelling, polydipsia, polyuria, polyphagia, and marked weight changes, Hematologic/Lymphatic: Negative for swollen nodes, abnormal bleeding, and unusual bruising, 11:14 All other systems are negative, Exam: 11:15 Constitutional: This is a well developed, well nourished patient who is awake, alert, sp3 and in no acute distress. Head/Face: Normocephalic, atraumatic. Eyes: Pupils equal round and reactive to light, extra-ocular motions intact. Lids and lashes normal. Conjunctiva and sclera are non-icteric and not injected. Cornea within normal limits. Periorbital areas with no swelling, redness, or edema. Neck: Trachea midline, no thyromegaly or masses palpated, and no cervical lymphadenopathy. Supple, full range of motion without nuchal rigidity, or vertebral point tenderness. No Meningismus. Chest/axilla: Normal chest wall appearance and motion. Nontender with no deformity. No lesions are appreciated. Cardiovascular: Regular rate and rhythm with a normal S1 and S2. No gallops, murmurs, or rubs. Normal PMI, no JVD. No pulse deficits. Respiratory: Lungs have equal breath sounds bilaterally, clear to auscultation and percussion. No rales, rhonchi or wheezes noted. No increased work of breathing, no retractions or nasal flaring. Back: No spinal tenderness. No costovertebral tenderness. Full range of motion. Skin: Warm, dry with normal turgor. Normal color with no rashes, no lesions, and no evidence of cellulitis. MS/ Extremity: Pulses equal, no cyanosis. Neurovascular intact. Full, normal range of motion. Neuro: Awake and alert, GCS 15, oriented to person, place, time, and situation. Cranial nerves II-XII grossly intact. Motor strength 5/5 in all extremities. Sensory grossly intact. Cerebellar exam normal. Normal gait. Psych: Awake, alert, with orientation to person, place and time. Behavior, mood, and affect are within normal limits. 11:15 Abdomen/GI: Pain to palpation right upper quadrant without peritoneal signs, rebound or guarding., Vital Signs: 10:56 BP 122 / 82; Pulse 87; Resp 16; Temp 98.7; Pulse Ox 100% on R/A; Weight 99.79 kg; iw Height 5 ft. 3 in. ; Pain 7/10; 12:50 BP 143 / 83; Pulse 93; Resp 16; Pulse Ox 98% on R/A; Pain 5/10; nj1 10:56 Body Mass Index 38.97 (99.79 kg, 160.02 cm) iw 10:56 Pain Scale: Adult iw 12:50 Pain Scale: Adult nj1 MDM: 11:05 Patient medically screened. sp3 11:15 Data reviewed: vital signs, nurses notes, lab test result(s), EKG, radiologic studies. sp3 ED course: 43-year-old female with PMH above now with continued and worsening right upper quadrant abdominal pain currently in mid workup by her primary team. Differential diagnosis includes biliary pathology, gastritis, liver pathology, colitis, musculoskeletal, spectrum, kidney stone, among others. Workup will include CT scan of the abdomen pelvis with IV contrast, laboratory values and general supportive care with disposition pending workup and patient course.. 12:40 ED course: Workup negative except for UA demonstrating dehydration. Patient states her sp3 p.o. intake is been low. At this time she has already arranged follow-up and we will administer normal saline 1 L and Zofran 4 mg IV and discharge her home on ondansetron and tramadol.. 10/04 11:06 Order name: CBC with Diff; Complete Time: 12:10 3 10/04 11:06 Order name: CMP; Complete Time: 12:10/04 11:06 Order name: Lipase; Complete Time: 12:10/04 11:06 Order name: Test, Urine; Complete Time: 12:10/04 11:06 Order name: Urinalysis w/ reflexes; Complete Time: 12:10/04 11:06 Order name: CT Abd/Pelvis - IV Contrast Only; Complete Time: 12:10/04 11:06 Order name: IV Saline Lock; Complete Time: 11:10/04 11:06 Order name: Labs collected and sent; Complete Time: 11: Administered Medications: 12:50 Drug: NS 0.9% IV 1000 ml IV at 1 bolus Per protocol; 1000 mL bolus Route: IV; Rate: 1 nj1 bolus; Site: right antecubital; 12:50 Drug: Ondansetron IVP 4 mg IVP once; over 2 minutes Route: IVP; Site: right antecubital;nj1 Disposition Summary: 10/05/23 12:41 Discharge Ordered Notes: Location: Home sp3 Condition: Stable sp3 Diagnosis - Vomiting, abdominal pain, dehydration sp3 Followup: sp3 - With: Private Physician - When: Upon discharge from the Emergency Department - Reason: Continuance of care Discharge Instructions: - Discharge Summary Sheet sp3 - Vomiting, Adult sp3 Forms: - Medication Reconciliation Form sp3 - Antibiotic Education sp3 - Prescription Opioid Use sp3 - Patient Portal Instructions sp3 - Leadership Thank You Letter sp3 Prescriptions: - Tramadol 50 mg Oral Tablet - take 1 tablet ORAL route every 8 hours as needed; 12 tablet; Refills: 0, sp3 Product Selection Permitted - ondansetron 8 mg Oral Tablet,disintegrating - take 1 tablet ORAL route every 12 hours; 20 tablet; Refills: 0, Product sp3 Selection Permitted Signatures: Dispatcher [employer] Dayna Brandon, TAMMY MUNOZ iw Sharee Solomon MD MD sp3 Jennifer Sevilla RN RN nj1
[2023-10-05] MEDS ORDERED: ONDANSETRON 4 MG/2 ML VIAL ONE (12:44)
[2023-10-05] MEDS ORDERED: NA CHLORIDE 0.9% 1,000 ML ONE (12:44)
[2023-10-05 15:37] VITALS: BP 143/83; TEMP 98.7; O2SAT 98
== END 2023-10-05 14:10 | disposition home or self-care (01) ==
LOC: ER 10:49
DX: R10.11 Right upper quadrant pain (principal); E86.0 Dehydration; R11.10 Vomiting, unspecified; I10 Essential (primary) hypertension; R73.03 Prediabetes
CPT/HCPCS: 85025; 81001; 36415; 81025; 83690; 80053; 74177; Q9967; J2405; J7030

== ENCOUNTER 2024-07-29 10:00 | Day surgery (SDC) | payer BC, OTHER ==
[2024-07-25 11:38] LABS: Anion Gap 7.9 mEq/L (5.0-15.0); Potassium 3.9 mEq/L (3.5-5.1)
[2024-07-29] MEDS ORDERED: Ringers Lactate 1,000 ML IV ONE (10:30)
[2024-07-29] MEDS ORDERED: LIDOCAINE 1% MPF 5 ML VIAL ONE (12:15)
[2024-07-29] MEDS ORDERED: propofoL 200 MG/20 ML VIAL IV ONE (12:15)
[2024-07-29 12:42] VITALS: TEMP 98.6
[2024-07-29 16:52] VITALS: O2SAT 100
[2024-07-29 16:53] VITALS: BP 103/66
--- NOTE | 2024-08-05 12:53 | EKG ---
Test Date: 2024-07-25 Test Time: 12:03:51 Technologist Development: MADELINE MEASUREMENT RESULTS: Intervals: Rate: 86 FL: 150 QRSD: 84 QT: 346 QTc: 414 Donaldson: P: 61 FL: 150 QRS: 54 T: 53 INTERPRETIVE STATEMENTS: Normal sinus rhythm Low voltage QRS Borderline ECG Compared to ECG 09/20/2023 12:46:45 Myocardial infarct finding no longer present Electronically Signed On 08-05-24 12:25:11 BUSINESS DEVELOPER by Shree Andrews
== END 2024-07-29 13:39 | disposition home or self-care (01) ==
LOC: OR 10:00
PROVIDERS: ATTEND Surgery
PROC: 0DBK8ZX Excision of Ascending Colon, Via Natural or Artificial Opening Endoscopic, Diagnostic (ICD-10-PCS; 2024-07-29)
PROC: 0DBQ8ZX Excision of Anus, Via Natural or Artificial Opening Endoscopic, Diagnostic (ICD-10-PCS; principal; 2024-07-29 12:30)
DX: Z12.11 Encounter for screening for malignant neoplasm of colon (principal); K64.8 Other hemorrhoids; K63.5 Polyp of colon; K62.82 Dysplasia of anus
CPT/HCPCS: 45380; 93005; 80048; 36415; 81025; 88305; J2704; J2003; J7120